=== PATIENT | male | born 1945 | race Caucasian/White ===

== ENCOUNTER 2018-08-21 07:23 | Emergency (ER) | payer OTHER ==
[2018-08-21] MEDS ORDERED: methylPREDNISolone SOD SUCC 125 MG/2 ML VIAL IM ONE (07:38)
[2018-08-21 07:41] VITALS: BP 112/71
--- NOTE | 2018-08-21 07:42 | ED Physician Documentation ---
Upper Extremity Injury - HISTORIAN Historian: patient - HPI Stated Complaint: right wrist pain Chief Complaint: Upper Back Injury/ Pain Additional Information: Patient presents to ED with a 2 day history of right wrist pain. 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 He felt some pain in the wrist then but it went away quickly. Over the last 2 days the pain in his wrist has intensified. Today he is unable to flex/extend wrist without 8/10 sharp pain. Onset: days ago (2) Where: home Severity: moderate Duration: worse, persistent since Context: other Associated Symptoms: denies: tingling, numbness distally, feeling loss, loss of power to arms Modifying Factors: pain on movement Further Comments: no - ROS CONST: denies: recent illness CVS/RESP: denies: chest pain, shortness of breath NEURO: denies: headache MS/SKIN/LYMPH: denies: neck pain, back pain, ankle swelling GI/: denies: nausea, vomiting - PAST HX Past History: Rt handed Allergies/Adverse Reactions: Allergies Allergy/AdvReac Type Severity Reaction Status Date / Time aspirin AdvReac Intermediate Hives Unverified 08/21/18 07:44 Home Medications: Ambulatory Orders Medication Instructions Recorded predniSONE [Deltasone] 20 mg PO DIRECTED #6 tablet 08/21/18 - SOCIAL HX Smoking History: non-smoker Alcohol Use: none Drug Use: none - FAMILY HX Family History: none - VITAL SIGNS Vital Signs: Vital Signs Temp Pulse Resp BP Pulse Ox 71 16 112/71 93 08/21/18 07:23 08/21/18 07:23 08/21/18 07:23 08/21/18 07:23 - REVIEWED ASSESSMENTS Nursing Assessment Reviewed: Yes Vitals Reviewed: Yes ED Results Lab/Radiology - Radiology Radiology Impressions: Report Submission Date: Aug 21, 2018 8:09:25 AM SURGICAL SCRUB TECHNOLOGIST Patient Study Name: KERWIN FAGAN Date: Aug 21, 2018 7:45:00 AM SURGICAL SCRUB TECHNOLOGIST Modality Type: DX Gender: M Description: RT WRIST : 45 Institution: [facility] Physician: MELODIE JEFF Examination: Plain film right wrist History: PAIN IN RT WRIST SINCE YESTERDAY, NO KNOWN INJURY Comparison exams: None available Findings: 3 views of the right wrist demonstrate normal cortical margins. No fracture. No dislocation. Possible lunate bone cyst. No soft tissue abnormality. Impression: No acute osseous abnormality Electronically signed on Aug 21, 2018 8:09:25 AM SURGICAL SCRUB TECHNOLOGIST by: Reginald Agosto - Orders Orders: ED Orders Category Date Time Status WRIST 3 VIEWS OR MORE [RAD] Stat Exams 08/21/18 Ordered HYDROcodone /APAP 5/325 [[place] 5/325] Med 08/21/18 07:43 Discontinued 1 each PO NOW ONE methylPREDNISolone SOD SUCC [Solu-MEDROL] Med 08/21/18 07:38 Discontinued 125 mg IM NOW ONE Upper Extremity Injury Physic - Physical Exam General Appearance: no acute distress, alert Hand: normal inspection, non-tender Wrist: bone tenderness, pain, soft tissue tenderness, swelling. No: deformity Elbow/Forearm: normal inspection, no evidence of injury Shoulder: normal inspection, no evidence of injury Neuro/Vascular/Tendon: no vascular compromise, motor nml, sensation nml Skin: warm,dry Head/ENT: nml inspection Neck/Back: nml inspection Resp/CVS: chest non-tender, breath sounds nml Abdomen: non-tender Discharge Clincal Impression: Sprain of wrist, right Qualifiers: Encounter type: initial encounter Qualified Code(s): S63.501A - Unspecified sprain of right wrist, initial encounter Prescriptions: predniSONE [Deltasone] 20 mg PO DIRECTED #6 tablet Referrals: Primary Doctor,No [Primary Care Provider] - 2 Days Additional Instructions: 1. Use pain medication sparingly. You may add Ibuprofen if needed for better pain control 2. Apply Ice to affected area as needed for comfort 3. Keep wrist elevated when resting 4. Wear brace when awake, remove with rest. 5. Follow up with PCP wood 1 week 6. Return to ER for new or worsening symptoms. Condition: Stable Disposition: 01 HOME, SELF-CARE Decision to Admit: NO Date of Decison to Admit: 08/21/18 Decision Time: 08:19
[2018-08-21] MEDS ORDERED: HYDROcodone /APAP 5/325 1 EACH TABLET PO ONE (07:43)
--- NOTE | 2018-08-22 04:19 | Diagnostic Imaging Report ---
MELODIE JEFF [facility] [address] [facility] [address] [address] Report Submission Date: Aug 21, 2018 8:09:25 AM SLEEVE MAKER Patient Study Name: KERWIN FAGAN Date: Aug 21, 2018 7:45:00 AM SLEEVE MAKER Modality Type: DX Gender: M Description: RT WRIST : 45 Institution: [facility] Physician: MELODIE JEFF Examination: Plain film right wrist History: PAIN IN RT WRIST SINCE YESTERDAY, NO KNOWN INJURY Comparison exams: None available Findings: 3 views of the right wrist demonstrate normal cortical margins. No fracture. No dislocation. Possible lunate bone cyst. No soft tissue abnormality. Impression: No acute osseous abnormality Electronically signed on Aug 21, 2018 8:09:25 AM SLEEVE MAKER by: Reginald BARROW
== END 2018-08-21 08:33 | disposition home or self-care (01) ==
LOC: ED 07:23
DX: S63.501A Unspecified sprain of right wrist, initial encounter (principal); X58.XXXA Exposure to other specified factors, initial encounter; Y93.89 Activity, other specified; Y92.009 Unspecified place in unspecified non-institutional (private) residence as the place of occurrence of the external cause
CPT/HCPCS: 73110; 96372; 99282; 99283; A9270; J2930